=== PATIENT | female | born 1975 | race Caucasian/White ===

== ENCOUNTER 2019-04-22 13:50 | Emergency (ER) | payer OTHER ==
[2019-04-22] MEDS ORDERED: Ondansetron 4 MG Tab.DIS PO ONE (13:58)
--- NOTE | 2019-04-22 14:04 | EDM.PDOC ---
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 Started getting really dizzy, lighthead, nauseated with near syncope. She tried to sit down but had "no where to go" Our nursing staff states that she was extremely pale, diaphoretic. Feeling better now that she was lying on a cot at time of my exam. No chest pain. She did get anxious, has some numbness and tingling of her hands and feet. On no BP, heart, or diabetic meds. She was not feeling ill prior to this incident, was out in the heat in her garden for awhile this morning. - Related Data Allergies Allergy/AdvReac Type Severity Reaction Status Date / Time No Known Allergies Allergy Verified 04/22/19 14:06 Home Meds: Home Meds PARoxetine [Paxil] 10 mg PO DAILY 04/22/19 [History] ED ROS GENERAL - Review of Systems Review Of Systems: See Below Constitutional: Reports: Diaphoresis. Denies: Fever, Chills HEENT: Denies: Throat Pain Respiratory: Reports: Shortness of Breath (gone) Cardiovascular: Denies: Chest Pain GI/Abdominal: Reports: Nausea. Denies: Abdominal Pain, Vomiting Skin: Reports: Diaphoresis Neurological: Reports: Dizziness (now better), Numbness (bilat hands and feet) - Physical Exam Exam: See Below General Appearance: Alert, Mild Distress (still feels weak, dizzy, lightheaded and nauseated) Eye Exam: Bilateral Eye: PERRL Throat/Mouth: Normal Inspection, Normal Oropharynx Head Exam: Atraumatic Neck: Supple Respiratory/Chest: No Respiratory Distress, Lungs Clear, Normal Breath Sounds Cardiovascular: Regular Rate, Rhythm Neuro Exam (Abbreviated): Alert, Oriented, No Motor/Sensory Deficits, Other ( finger to nose normal) Extremities: Normal Inspection, Normal Range of Motion Skin Exam: Normal Color (is now getting some color back to face and extrem. at time of my exam) Course - Vital Signs Last Recorded V/S: Last Vital Signs Temp 98.4 F 04/22/19 14:01 Pulse 90 04/22/19 14:01 Resp 20 08/25/19 14:01 BP 127/84 04/22/19 14:01 Pulse Ox 97 04/22/19 14:01 - Orders/Labs/Meds Meds: Medications Discontinued Medications Generic Name Dose Route Start Last Admin Trade Name Sandra PRN Reason Stop Dose Admin Ondansetron HCl 4 mg 04/22/19 13:58 04/22/19 14:08 Zofran Odt PO 04/22/19 13:59 4 mg ONETIME ONE Administration - Re-Assessments/Exams Free Text/Narrative Re-Assessment/Exam: 04/22/19 14:04 BP 124/80 at time of my exam, starting to feel better, will give zofran ODT, let her rest, start drinking water when she feels up to that, this was clearly vasovagal, labs not indicated at this time. 14:40. Feeling better, still mildly dizzy when sitting, she has good facial color, vitals have been stable, discharge instr. as documented. Departure - Departure Time of Disposition: 15:16 Disposition: Home, Self-Care 01 Condition: Fair Clinical Impression: Vasovagal near syncope - Discharge Information Forms: ED Department Discharge Additional Instructions: rest, drink plenty of water to regain and maintain hydration. If you do have any further dizziness or severe lightheadedness get your head down as discussed. Follow up clinic as needed, return to ED as needed.
== END 2019-04-22 15:26 | disposition home or self-care (01) ==
LOC: JD.ED 13:50
DX: R55 Syncope and collapse (principal); Z79.899 Other long term (current) drug therapy
CPT/HCPCS: 99283; A9270